=== PATIENT | male | born 1975 | race Caucasian/White ===

== ENCOUNTER 2018-01-13 11:22 | Emergency (ER) | payer MEDICARE ==
--- NOTE | 2018-01-13 12:52 | XRAY Report ---
Reason: SOA Procedure Date: 01/13/2018 Accession Number: [id number] / [id number] Procedure: XR - Chest 2 View X-Ray CPT Code: 03188 FULL RESULT: EXAM: CHEST RADIOGRAPHY EXAM DATE: 01/13/2018 12:10 PM. CLINICAL HISTORY: Cough. COMPARISON: None. TECHNIQUE: 2 views. FINDINGS: Lungs/Pleura: No focal opacities evident. No pleural effusion. No pneumothorax. Normal volumes. Mediastinum: Heart and mediastinal contours are unremarkable. Other: Scoliosis. IMPRESSION: No consolidation evident. RADIA
--- NOTE | 2018-01-13 13:32 | ED Physician Documentation ---
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 recent sinus issues now cough, fevers to 103+, vomiting, dec breath sounds no recent travel no recent injury no leg swelling hx smoke exposure mom has been txing with [place] keflex Review of Systems Constitutional: reports: Fever, Chills, Myalgias Nose: reports: Congestion, Sinus pressure / pain Respiratory: reports: Dyspnea, Cough Musculoskeletal: denies: Extremity pain, Extremity swelling PD PAST MEDICAL HISTORY - Present Medications Home Medications: Ambulatory Orders Medication Instructions Recorded Confirmed Azithromycin [Zithromax] 250 mg PO DAILY #6 tablet 01/13/18 Benzonatate [Tessalon] 100 mg PO TID PRN #20 capsule 01/13/18 Fluticasone [Flonase] 1 sprays VINCENT BID PRN #1 bottle 01/13/18 - Allergies Allergies/Adverse Reactions: Allergies Allergy/AdvReac Type Severity Reaction Status Date / Time No Known Drug Allergies Allergy Verified 01/13/18 11:43 PD ED PE NORMAL - Vitals Vital signs reviewed: Yes - Cardiac Cardiac: RRR - Respiratory Respiratory: No respiratory distress. No: Clear bilaterally (dec edmond but no wheeze) - Derm Derm: Normal color - Extremities Extremities: No deformity, No edema, No calf tenderness / cord - Neuro Neuro: Other (alert cooperative) Results - Vitals Vitals: Vital Signs - 24 hr 01/13/18 11:40 Temperature 36.5 C Heart Rate 119 H Respiratory 20 Rate Blood Pressure 129/86 H O2 Saturation 100 Oxygen O2 Source Room air PD MEDICAL DECISION MAKING - ED course ED course: cough and fever to 103 HR noted no recent travel injury leg swelling or hx DVT no sudafed nebs etc mom states normally HR is about 90-100 doubt PE given compromised resp status per hx from mom will rx more appropriate resp coverage ab advised mom to monitor HR and if remains tachy may need further wup - Sepsis Event Vital Signs: Vital Signs - 24 hr 01/13/18 11:40 Temperature 36.5 C Heart Rate 119 H Respiratory 20 Rate Blood Pressure 129/86 H O2 Saturation 100 Oxygen O2 Source Room air Departure - Departure Disposition: 01 Home, Self Care Clinical Impression: Bronchitis Condition: Good Instructions: ED Upper Resp Infec Abx Tx Prescriptions: Azithromycin [Zithromax] 250 mg PO DAILY #6 tablet Benzonatate [Tessalon] 100 mg PO TID PRN #20 capsule PRN Reason: to ease cough Fluticasone [Flonase] 1 sprays VINCENT BID PRN #1 bottle PRN Reason: allergies Comments: There is no pneumonia on xray but given Francis's compromised respiratory status I have prescribed zithromax as well as decongestant spray and cough suppressants Please watch his heart rate and if remains high despite the treatment plan he may need further work up.
[2018-01-13 14:11] VITALS: BP 110/70
== END 2018-01-13 14:44 | disposition home or self-care (01) ==
LOC: ED 11:22
DX: J40 Bronchitis, not specified as acute or chronic (principal)
CPT/HCPCS: 71046; 99283

== ENCOUNTER 2018-04-16 11:33 | Outpatient (CLI) | payer MEDICARE, MEDICAID | END 2018-04-16 11:34 | disposition home or self-care (01) | LOC: DI 11:33 | PROVIDERS: ATTEND Otolaryngology | DX: Z53.9 Procedure and treatment not carried out, unspecified reason (principal) ==

== ENCOUNTER 2018-05-03 10:14 | Outpatient (CLI) | payer MEDICARE, MEDICAID ==
--- NOTE | 2018-05-03 16:59 | CT Report ---
Reason: CHRONIC SINUSITIS, NASAL OBSTRUCTION Procedure Date: 05/03/2018 Accession Number: [id number] / [id number] Procedure: CT - Sinuses CPT Code: FULL RESULT: EXAM: CT SINUS. EXAM DATE: 05/03/2018 10:46 AM. HISTORY: Chronic sinusitis, nasal obstruction. COMPARISONS: None. TECHNIQUE: Routine multi-axial CT imaging performed through the sinuses. Iodinated IV contrast: None. Reconstructions: Multiplanar reformats. In accordance with CT protocol optimization, one or more of the following dose reduction techniques were utilized for this exam: automated exposure control, adjustment of mA and/or KV based on patient size, or use of iterative reconstructive technique. FINDINGS: RIGHT Frontal: Normal. Ethmoid: Normal. Maxillary: Small sessile nondependent thickening. No air-fluid level. Sphenoid: Normal. Drainage Pathways: The frontal recess, ostiomeatal complex sphenoethmoidal recess are patent and normal. LEFT Frontal: Normal. Ethmoid: Normal. Maxillary: Normal. Sphenoid: Normal. Drainage Pathways: The frontal recess, ostiomeatal complex and sphenoethmoidal recess are patent and normal. Nasal Cavity: Rightward posterior septal deviation. Osseous Structures: Unremarkable. Orbits: Unremarkable. Other: Narrow anterior alveolar ridge with overcrowding of the anterior teeth/incisors. IMPRESSION: 1. Nondependent sessile mucus thickening in the right maxillary sinus. Other paranasal sinuses are clear. 2. Rightward deviation of the posterior nasal septum. RADIA
== END 2018-05-03 10:15 | disposition home or self-care (01) ==
LOC: DI 10:14
PROVIDERS: ATTEND Otolaryngology
DX: J32.8 Other chronic sinusitis (principal); J34.2 Deviated nasal septum
CPT/HCPCS: 70486

== ENCOUNTER 2018-05-14 08:30 | Outpatient (CLI) | payer MEDICARE, MEDICAID ==
--- NOTE | 2018-05-17 09:36 | DEXA Report ---
Reason: BONE DISORDER Procedure Date: 05/14/2018 Accession Number: [id number] / [id number] Procedure: DEX - Dexa Spine and/or Hip CPT Code: FULL RESULT: EXAM: Dexa Spine and/or Hip DATE: 05/14/2018 9:17 AM CLINICAL HISTORY: BONE DISORDER TECHNIQUE: Dual energy x-ray absorptiometry (DXA) was performed on a [employer]ing[employer] System. Regions measured are the AP Spine, femoral neck, and if needed forearm. COMPARISON: None. In accordance with the International Society for Clinical Densitometry (ISCD) guidelines, data from previous exams may be reanalyzed using current recommendations and techniques. This is done to allow a more accurate basis for comparison with the current study. FINDINGS: The data for the lumbar spine is as follows: BMD (g/cm/cm) T-SCORE Z-SCORE REGION L1 0.805 -3.0 -2.9 L2 0.727 -4.3 -4.2 L3 0.728 -4.3 -4.2 L4 0.754 -4.0 -4.0 TOTAL 0.752 -3.9 -3.8 NOTE: All evaluable vertebrae are used for classification The data for the hip is as follows: BMD (g/cm/cm) T-SCORE Z-SCORE REGION Neck 0.608 -3.6 -3.2 TOTAL 0.566 -3.7 -3.5 NOTE: The femoral neck or total proximal femur, whichever is lowest, is used for classification. IMPRESSION: THE WHO CLASSIFICATION BASED ON THE INTERNATIONAL REFERENCE STANDARD IS OSTEOPOROSIS. THE FRACTURE RISK IS HIGH. RECOMMENDATION: Patients with diagnosis of osteoporosis or osteopenia should have regular bone mineral density assessment. For those eligible for Medicare, routine testing is allowed once every 2 years. Testing frequency can be increased for patients who have rapidly progressing disease or for those who are receiving medical therapy to restore bone mass. COMMENT: World Health Organization (WHO) definitions for osteoporosis and osteopenia: NORMAL BMD: T-score at -1.0 or higher, fracture risk is low OSTEOPENIA BMD: T-score between -1.0 and -2.5, fracture risk is increased. OSTEOPOROSIS BMD: T-score at -2.5 or lower, fracture risk is high. National Osteoporosis Foundation recommends: 1. Obtain adequate dietary calcium (at least 1200 mg per day) and vitamin D (400-800 international units per day). 2. Participate, as appropriate, in regular weightbearing and muscle-strengthening exercise. 3. Avoid tobacco use and reduce alcohol and caffeine intake. 4. For more detailed information see the website at www.NOF.org.
== END 2018-05-14 08:31 | disposition home or self-care (01) ==
LOC: DI 08:30
PROVIDERS: ATTEND Nurse Practitioner
DX: M81.0 Age-related osteoporosis without current pathological fracture (principal)
CPT/HCPCS: 77080

== ENCOUNTER 2018-05-20 11:49 | Outpatient (CLI) | payer MEDICARE, MEDICAID ==
[2018-05-20 19:22] LABS: BASOPHILS % (AUTO) 0.5 %; EOSINOPHILS % (AUTO) 1.5 %; HGB - HEMOGLOBIN 16.3 g/dL (14.0-18.0); MEAN CORPUSCULAR HEMOGLOBIN 30.2 pg (27.0-31.0); MEAN CORPUSCULAR HGB CONC 32.1 g/dL (32.0-36.0); MEAN CORPUSCULAR VOLUME 93.8 fL (80.0-94.0); MEAN PLATELET VOLUME 8.6 fL (7.4-11.4); MONOCYTES % (AUTO) 6.2 %; NEUTROPHILS % (AUTO) 54.8 %; PLT - PLATELET COUNT 251 10^3/uL (130-450); RED BLOOD COUNT 5.41 10^6/uL (4.70-6.10); RED CELL DISTRIBUTION WIDTH 13.9 % (12.0-15.0); WHITE BLOOD COUNT 13.8 x10^3/uL (4.8-10.8)
[2018-05-20 19:34] LABS: ABNORMAL LYMPHS % (MANUAL) 0 %; BAND NEUTROPHILS % (MANUAL) 0 %
[2018-05-20 19:37] LABS: ALBUMIN 4.6 g/dL (3.2-5.5); ALBUMIN/GLOBULIN RATIO 1.4 (1.0-2.2); BILIRUBIN,TOTAL 0.6 mg/dL (0.2-1.0); CALCIUM 9.9 mg/dL (8.5-10.3); CREATININE 0.4 mg/dL (0.6-1.2); TOTAL PROTEIN 7.8 g/dL (6.7-8.2)
[2018-05-20 19:56] LABS: DIFFERENTIAL COMMENT MANUAL DIFFERENTIAL; EOSINOPHILS # (MANUAL) 0.4 10^3/uL (0-0.7); LYMPHOCYTES # (MANUAL) 5.4 10^3/uL (1.5-3.5); LYMPHOCYTES % (MANUAL) 39 %; NEUTROPHILS % (MANUAL) 51 %; PLATELET ESTIMATE, MANUAL NORMAL (130-450,000) (NORMAL); PLATELET MORPHOLOGY NORMAL APPEARANCE (NORMAL); RBC MORPHOLOGY (MULTIPLE) NORMAL APPEARANCE (NORMAL)
== END 2018-05-20 23:59 | disposition home or self-care (01) ==
LOC: LAB.N 11:49
PROVIDERS: ATTEND Nurse Practitioner
DX: M81.0 Age-related osteoporosis without current pathological fracture (principal); E55.9 Vitamin D deficiency, unspecified; Q87.2 Congenital malformation syndromes predominantly involving limbs
CPT/HCPCS: 36415; 80053; 82306; 85025

== ENCOUNTER 2018-07-13 13:28 | Outpatient (CLI) | payer MEDICARE, MEDICAID | END 2018-07-13 13:29 | disposition home or self-care (01) | LOC: SC 13:28 | PROVIDERS: ATTEND Internal Medicine Pulmonary Disease | DX: G47.8 Other sleep disorders (principal); R06.83 Snoring | CPT/HCPCS: 99203; G0463; 99212 ==

== ENCOUNTER 2018-08-10 20:34 | Outpatient (CLI) | payer MEDICARE, MEDICAID | END 2018-08-10 20:35 | disposition home or self-care (01) | LOC: SC 20:34 | PROVIDERS: ATTEND Internal Medicine Pulmonary Disease | DX: Z53.9 Procedure and treatment not carried out, unspecified reason (principal) ==

== ENCOUNTER 2018-09-14 13:19 | Outpatient (CLI) | payer MEDICARE, MEDICAID | END 2018-09-14 13:20 | disposition home or self-care (01) | LOC: SC 13:19 | PROVIDERS: ATTEND Internal Medicine Pulmonary Disease | DX: R06.83 Snoring (principal) | CPT/HCPCS: 99212; G0463 ==

== ENCOUNTER 2018-09-21 19:30 | Outpatient (CLI) | payer MEDICARE, MEDICAID | END 2018-09-21 23:59 | disposition home or self-care (01) | LOC: SC 19:30 | PROVIDERS: ATTEND Internal Medicine Pulmonary Disease | DX: R06.81 Apnea, not elsewhere classified (principal); R06.83 Snoring | CPT/HCPCS: G0399 ×2; 95806 ==

== ENCOUNTER 2018-12-01 12:47 | Outpatient (CLI) | payer MEDICARE, MEDICAID | END 2018-12-01 12:48 | disposition home or self-care (01) | LOC: SC 12:47 | PROVIDERS: ATTEND Nurse Practitioner Family | DX: R06.83 Snoring (principal) | CPT/HCPCS: 99213; G0463; 99212 ==

== ENCOUNTER 2022-11-21 08:00 | Outpatient (CLI) | payer MEDICARE, MEDICAID | END 2022-11-21 23:59 | disposition home or self-care (01) | LOC: LAB.R 08:00 | PROVIDERS: ATTEND Registered Nurse | DX: L08.9 Local infection of the skin and subcutaneous tissue, unspecified (principal) | CPT/HCPCS: 87070; 87205 ==

== ENCOUNTER 2022-11-24 10:39 | Outpatient (CLI) | payer MEDICARE, MEDICAID ==
--- NOTE | 2022-11-24 12:56 | CT Report ---
PROCEDURE: UPPER EXTREMITY WO - LT INDICATIONS: DISLOCATION OF LEFT ULNOHUMERAL JOINT TECHNIQUE: Noncontrast 1 mm axial sections were acquired through the elbow joint, with coronal and sagittal refo rmats. For radiation dose reduction, the following was used: automated exposure control, adjustment of mA and/or kV according to patient size. COMPARISON: None. FINDINGS: Image quality: Excellent. Bones: There is posterior dislocation of the elbow. The distal humerus articulates with the coronoid process of the ulna and the anterior radial neck. Probable small displaced fracture of the anterior aspect of the radial head. Small osseous fracture is seen at the coronoid process. A few additional s mall calcifications are seen about the elbow uncertain origin. Postsurgical changes are seen from prior radial and ulnar shaft fracture fixation. No acute hardware complication is seen. Soft tissues: Moderate joint effusion with calcified intra-articular debris. The musculature surroun ding the elbow is normal in bulk. The articular cartilages, ligaments, tendons are not well evaluated with CT. IMPRESSION: 1.Posterior elbow dislocation. 2.Displaced fractures of the anterior radial head and the coronoid process of the ulna. 3.Moderate elbow effusion. 4.Intact postsurgical changes at the radial and ulnar shafts. Reviewed by: Kaiser Estrada MD on 11/24/2022 12:54 PM PDT Approved by: aKiser Estrada MD on 11/24/2022 12:54 PM PDT Station ID: [id number]
--- NOTE | 2022-11-24 13:30 | XRAY Report ---
PROCEDURE: Calcaneus LT INDICATIONS: OSTEOMYELITIS TECHNIQUE: Two views of the calcaneus were acquired. COMPARISON: None FINDINGS: Bones: No fractures or dislocations. No suspicious bony lesions. Midfoot joint space narrowing wit h osteophytosis. Soft tissues: No suspicious calcifications. Achilles tendon appears normal. IMPRESSION: No radiographic evidence of osteomyelitis. Reviewed by: Juan Adame on 11/24/2022 1:28 PM PDT Approved by: Juan Adame on 11/24/2022 1:28 PM PDT Station ID: [id number]
== END 2022-11-24 10:40 | disposition home or self-care (01) ==
LOC: DI 10:39
PROVIDERS: ATTEND Orthopaedic Surgery
DX: S53.105D Unspecified dislocation of left ulnohumeral joint, subsequent encounter (principal); S52.122A Displaced fracture of head of left radius, initial encounter for closed fracture; S52.042A Displaced fracture of coronoid process of left ulna, initial encounter for closed fracture; M25.422 Effusion, left elbow

== ENCOUNTER 2023-05-04 09:45 | Outpatient (CLI) | payer MEDICARE, MEDICAID | END 2023-05-04 09:46 | disposition home or self-care (01) | LOC: LAB 09:45 | PROVIDERS: ATTEND Nurse Practitioner | DX: N13.2 Hydronephrosis with renal and ureteral calculous obstruction (principal) | CPT/HCPCS: 87077; 87086; 87181 ==